=== PATIENT | female | born 1945 | race African-American/Black ===

== ENCOUNTER 2017-11-27 18:47 | Emergency (ER) | payer OTHER, BC ==
[~2017-11-27] VITALS: Ht 165.1 cm; Wt 65.8 kg
[~2017-11-27 18:47] MED LIST: BENICAR20 MG PO; BYSTOLIC 5 MG5 M1 PO; CARDIO OMEGA B1 EACH PO; FLEXERIL PO; LEVOTHYROXIN0.125 M1 PO; PREVACID 30MG C30 M1 PO; VICODIN 5-5001 EACH PO; VITAMIN D1000 UNI1 PO; ZOCOR20 MG PO
[2017-11-27 19:17] VITALS: BP 115/54
[2017-11-27] MEDS ORDERED: NORCO 5-325 TA1 EACH PO (20:19)
== END 2017-11-28 01:43 | disposition home or self-care (01) ==
LOC: ER 18:47
DX: M25.512 Pain in left shoulder (principal); M25.562 Pain in left knee; M54.5 Low back pain; M54.6 Pain in thoracic spine; M25.522 Pain in left elbow; I10 Essential (primary) hypertension; K21.9 Gastro-esophageal reflux disease without esophagitis; E78.00 Pure hypercholesterolemia, unspecified; W01.0XXA Fall on same level from slipping, tripping and stumbling without subsequent striking against object, initial encounter; Y93.01 Activity, walking, marching and hiking; Y92.512 Supermarket, store or market as the place of occurrence of the external cause; Y99.8 Other external cause status

== ENCOUNTER 2018-11-25 16:08 | Emergency (ER) | payer OTHER, BC ==
[~2018-11-25] VITALS: Ht 165.1 cm; Wt 65.8 kg
[~2018-11-25 16:08] MED LIST changes: +NORCO 5-325 TA1 EACH PO
[2018-11-25 17:02] VITALS: BP 124/68
== END 2018-11-25 17:02 | disposition home or self-care (01) ==
LOC: ER 16:08
DX: I10 Essential (primary) hypertension (principal); E78.5 Hyperlipidemia, unspecified; E03.9 Hypothyroidism, unspecified; Z96.651 Presence of right artificial knee joint